=== PATIENT | male | born 1995 | race Caucasian/White ===

== ENCOUNTER 2019-01-12 19:43 | Emergency (ER) | payer OTHER ==
[2019-01-12] MEDS ORDERED: Ondansetron 4 MG Tab.DIS PO ONE (20:09)
--- NOTE | 2019-01-12 20:13 | EDM.PDOC ---
ED HPI GENERAL MEDICAL PROBLEM - General Chief Complaint: Head Injury Stated Complaint: FRONT OF HEAD HIT WITH A LOG Time Seen by Provider: 01/12/19 20:00 Source of Information: Reports: Patient History Limitations: Reports: No Limitations - History of Present Illness INITIAL COMMENTS - FREE TEXT/NARRATIVE: 23-year-old male presents to the ED with a work-related injury. At approximately 1945 hrs. tonight he was struck on the right side of his head by a large 12 inch diameter tree branch. 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 He was on ground-level when he was struck from the side without any awareness of it coming. Knocked his hard hat off and it flew about 10 feet away. The forced propelled him to the ground. States he was dazed but he did not lose consciousness. Appreciated blurred vision and within 10-15 minutes started having dry heaves and retching for about a half an hour. Still feels his vision is not quite right. Gradually increasing headache right temporal scalp. Could walk okay. No other injuries to any bad other body parts occurred. No open wounds evident. Onset: Today Onset Date: 01/12/19 Onset Time: 17:45 Duration: Minutes: Location: Reports: Head (Right temporal scalp contusion with closed head injury. ) Quality: Reports: Ache, Throbbing Severity: Moderate Improves with: Reports: Rest Worsens with: Reports: Other (Dry heaving nausea), Movement Context: Reports: Trauma (Closed head injury when he was struck by a large 12 inch diameter tree branch that was being cut down. Struck him in the right side of the temporal scalp. Knocked to the ground and knocked his hard hat off.). Denies: Activity, Exercise, Lifting, Sick Contact Associated Symptoms: Reports: Confusion, Headaches, Loss of Appetite, Nausea/ Vomiting. Denies: Chest Pain, Cough, cough w sputum, Fever/Chills (Right he took for about a half an hour after injury.), Shortness of Breath, Syncope, Weakness Treatments [employer]: Reports: Other (see below) (None.) Right Parietal Pain Score (Numeric/FACES): 6 - Related Data Allergies Allergy/AdvReac Type Severity Reaction Status Date / Time No Known Allergies Allergy Verified 01/12/19 19:50 Home Meds: Home Meds . [No Known Home Meds] 01/12/19 [History] Past Medical History - Past Health History Medical/Surgical History: Denies Medical/Surgical History Social & Family History - Tobacco Use Smoking Status *Q: Never Smoker - Recreational Drug Use Recreational Drug Use: No - Living Situation & Occupation Occupation: Employed ED ROS GENERAL - Review of Systems Review Of Systems: See Below Constitutional: Reports: No Symptoms HEENT: Reports: No Symptoms Respiratory: Reports: No Symptoms Cardiovascular: Reports: No Symptoms Endocrine: Reports: No Symptoms GI/Abdominal: Reports: No Symptoms : Reports: No Symptoms Musculoskeletal: Reports: No Symptoms Skin: Reports: No Symptoms Neurological: Reports: No Symptoms Psychiatric: Reports: No Symptoms Hematologic/Lymphatic: Reports: No Symptoms Immunologic: Reports: No Symptoms ED EXAM, HEAD INJURY - Physical Exam Exam: See Below Exam Limited By: No Limitations General Appearance: Alert, WD/WN, No Apparent Distress, Other (Eye contact and is alert and oriented.) Head: Other (Mild scalp hematoma right temporal frontal scalp laterally. Ear is uninjured. Feels some tightness in his right temporomandibular joint but has full range of motion) Nexus Criteria: No: Posterior, Midline Cervical Tenderness ( of the), Evidence of Intoxication, Altered Level of Consciousness, Focal Neurological Deficit, Painful Distraction Injuries Eyes: Bilateral Eye: Normal Inspection, PERRL Ears: Normal TMs Nose: Normal Inspection Throat/Mouth: Normal Inspection, Normal Lips, Normal Teeth, Normal Oropharynx Neck: Stiff Neck, Tenderness (Mildly stiff neck.), Tender Lateral ( Numbness left lateral neck.), Other Respiratory: No Respiratory Distress (Has full unopposed range of motion of cervical spine.), Lungs Clear, Normal Breath Sounds, No Accessory Muscle Use Cardiovascular: Normal Peripheral Pulses, Regular Rate, Rhythm, No Edema, No Gallop, No Murmur, No Rub Extremities: Normal Inspection, Normal Range of Motion, Non-Tender Neurologic: No Motor/Sensory Deficits, Alert, Normal Mood/Affect, Oriented x 3 Skin: Normal Color, Warm/Dry - Elliott Coma Score Best Eye Response ([place]): (4) Open Spontaneously Best Verbal Response (Elliott): (5) Oriented Best Motor Response (Elliott): (6) Obeys Commands Elliott Total: 15 Course - Vital Signs Last Recorded V/S: Last Vital Signs Temp 36.6 C 01/12/19 19:48 Pulse 63 01/12/19 19:48 Resp 16 01/12/19 19:48 BP 136/58 L 01/12/19 19:48 Pulse Ox 96 01/12/19 19:48 - Orders/Labs/Meds Meds: Medications Discontinued Medications Generic Name Dose Route Start Last Admin Trade Name Senait PRN Reason Stop Dose Admin Ondansetron HCl 4 mg 01/12/19 20:09 01/12/19 20:16 Zofran Odt PO 01/12/19 20:10 4 mg ONETIME ONE Administration - Radiology Interpretation Free Text/Narrative:: 9-year-old male presents the ED with a work-related injury. He reports that about 1745 hrs. today while at work he was struck in the right lateral frontal temporal scalp by a large 12 inch diameter tree branch that they were cutting down. 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 States that it hit him so hard that it propelled him to the ground and knocked his hard hat off a good 10 feet. States he was dazed for a period of time but did not lose conscious. About 15 minutes later he started having dry heaves which persisted for about a half an hour. He appreciates that his vision seems to be off a bit. I blurred. He does not wear glasses or contact lenses. Has some mild left-sided neck pain. Denies any other injuries to his body parts. Patient has a gradually worsening headache since time of injury. He states he has not off balance with walking. Examination reveals mild soft tissue swelling over the temporal frontal lateral scalp on the right side. Ears okay. Mild tenderness of the right temporomandibular joint likely due to contusion of the temporalis muscle. Mild tenderness left lateral neck with full range of motion. Plan CT head to be done. - Re-Assessments/Exams Free Text/Narrative Re-Assessment/Exam: 01/12/19 20:48 CT head is within normal limits showing no intracranial bleeding or mass effect. No skull fractures identified. Therefore appears that he has suffered a mild concussion. He feels he will be able to carry on at work doing alternative work duties without a lot of heavy lifting pushing or pulling for the next 3 or 4 days. May use Motrin 6 mg every 6 hours necessary for headache relief. Patient reports nausea is improved after Zofran sublingual. Devised a very light meal tonight for supper tonight. Departure - Departure Time of Disposition: :52 Disposition: Home, Self-Care 01 Condition: Fair Clinical Impression: Concussion with no loss of consciousness Closed head injury with concussion Qualifiers: Encounter type: initial encounter Loss of consciousness presence/duration: without LOC Qualified Code(s): S06.0X0A - Concussion without loss of consciousness, initial encounter - Discharge Information *PRESCRIPTION DRUG MONITORING PROGRAM REVIEWED*: Not Applicable *COPY OF PRESCRIPTION DRUG MONITORING REPORT IN PATIENT ZINA: Not Applicable Instructions: Head Injury, Adult, [id number] Referrals: PCP,None [Primary Care Provider] - Forms: ED Department Discharge, ED Return to Work/School Form Additional Instructions: Evaluation the emergency room today in regards to injuries to the right side of your head that occurred in the workplace this evening. Suggest 6 significant blunt trauma to the right temporal frontal scalp has occurred with contusion to the temporalis muscle along the side of your right hand. You were dazed but did not lose consciousness. Associated recurrent nausea with retching for a period of time. Blurred vision as well. CT of the head is normal however with no skull fractures intracranial bleeding or mass effect. He suggest however that you have suffered a concussion which is like her brain being" punched." The brain would have a bruise but we can't see that. Suggest very light activities with no heavy exertion for the next 3-4 days. May return to work if alternative work duties are available where you don't have to do a lot of heavy lifting pushing or pulling. Continue Motrin 6 mg every 6 hours as needed for headache relief. Expect the left side of her neck to become much more stiff and sore over the next 24-48 hours. Ice pack to the area for one half hour out of every 4 hours may be used for 2 days if necessary. Should help with discomfort in this area as well. Symptoms of blurred vision, feeling of off balance and headache usually would get better over the next 3-7 days. If not completely back to normal in 10 days you need to be seen again.
--- NOTE | 2019-01-12 20:54 | CT ---
Head CT Technique: Multiple axial sections through the brain were obtained. Intravenous contrast was not utilized. Comparison: No previous study. Findings: Ventricles along with basal cisterns and sulci over the convexities are within normal limits for the patient's age. No abnormal parenchymal densities are seen. No evidence of intracranial hemorrhage. No midline shift or mass effect is seen. Bone window settings were reviewed which shows no acute calvarial abnormality. Visualized sinuses are clear. Impression: 1. Nothing acute is appreciated on noncontrast head CT exam. Diagnostic code #1
== END 2019-01-12 21:05 | disposition home or self-care (01) ==
LOC: JD.ED 19:43
DX: S06.0X0A Concussion without loss of consciousness, initial encounter (principal); Y99.0 Civilian activity done for income or pay; W22.8XXA Striking against or struck by other objects, initial encounter
CPT/HCPCS: 70450; 99284; A9270

== ENCOUNTER 2024-08-06 20:39 | Emergency (ER) | payer OTHER ==
[2024-08-06] MEDS: Iopamidol 612 MG/ML 100 ML Bottle IVPUSH ONE (21:31)
[2024-08-06] MEDS: Ketorolac 15 MG/ML SDV IVPUSH ONE (21:37)
[2024-08-06] MEDS: Sodium Chloride 0.9% 1,000 ML IV ONE (21:37)
[2024-08-06] MEDS: Sodium Chloride 0.9% 10 ML Syringe FLUSH PRN (21:40)
[2024-08-06 22:03] LABS: BASOPHILS PERCENT AUTO 0.2 % (0.0-1.0); EOSINOPHILS PERCENT AUTO 0.1 % (0.0-6.0); HEMATOCRIT 39.8 % (42.0-52.0); IMMATURE GRAN ABSOLUTE AUTO 0.03 K/mm3 (0.00-0.05); IMMATURE GRAN PERCENT AUTO 0.3 % (0.0-0.4); LYMPHOCYTES ABSOLUTE AUTO 0.6 K/mm3 (1.0-4.8); LYMPHOCYTES PERCENT AUTO 6.2 % (24.0-44.0); MEAN CORPUSCULAR HEMOGLOBIN 29.7 pg (28.0-32.0); MEAN CORPUSCULAR HGB CONC 35.2 g/dl (32.0-36.0); MEAN CORPUSCULAR VOLUME 84.5 fl (83.0-99.0); MEAN PLATELET VOLUME 9.4 fl (9.4-12.4); MONOCYTES ABSOLUTE AUTO 0.6 K/mm3 (0.0-0.8); MONOCYTES PERCENT AUTO 6.4 % (0.0-8.0); NEUTROPHILS ABSOLUTE AUTO 8.7 K/mm3 (1.8-7.7); NEUTROPHILS PERCENT AUTO 86.8 % (41.0-71.0); PLATELET COUNT,PLT 192 K/mm3 (150-400); RED BLOOD CELL COUNT 4.71 M/mm3 (4.52-5.90); WHITE BLOOD CELL COUNT,WBC 9.98 K/mm3 (3.9-11.3)
[2024-08-06 22:26] LABS: A/G RATIO 1.5 (1-2); ALBUMIN 3.8 g/dl (3.4-5.0); ANION GAP 12.7 (5-15); BILIRUBIN TOTAL 2.3 mg/dL (0.2-1.0); BUN/CREATININE RATIO 10.8 (14-18); CALCIUM 8.6 mg/dL (8.5-10.1); CREATININE 1.3 mg/dL (0.7-1.3); EST CRCL DRUG DOSING (CG) 79.09 mL/min; POTASSIUM,K 3.7 mEq/L (3.5-5.1); PROTEIN TOTAL,TP 6.4 g/dl (6.4-8.2)
[2024-08-06 22:32] LABS: APPEARANCE,URINE CLEAR (Clear); BILIRUBIN,URINE NEGATIVE (Negative); COLOR,URINE YELLOW (Yellow); GLUCOSE,URINE NEGATIVE (Negative); KETONES,URINE NEGATIVE (Negative); LEUKOCYTE ESTERASE,URINE NEGATIVE (Negative); NITRITE,URINE NEGATIVE (Negative); OCCULT BLOOD,URINE NEGATIVE (Negative); PH,URINE 8.5 (5.0-8.0); PROTEIN,URINE TRACE (Negative); UROBILINOGEN,URINE 0.2 (0.2-1.0)
[2024-08-06 22:40] LABS: BACTERIA,URINE OCCASIONAL /hpf (FEW); MUCUS,URINE FEW /hpf (FEW); RBC,URINE 0-5 /hpf (0-5); SQUAMOUS EPITHELIAL CELLS,UR 0-5 /hpf (0-5); WBC,URINE 0-5 /hpf (0-5)
== END 2024-08-06 23:37 | disposition home or self-care (01) ==
LOC: JD.ED 20:39
DX: R10.32 Left lower quadrant pain (principal); R10.12 Left upper quadrant pain; R10.13 Epigastric pain; R10.11 Right upper quadrant pain; F17.210 Nicotine dependence, cigarettes, uncomplicated; Z86.16 Personal history of COVID-19
CPT/HCPCS: 36415; 74177; 80053; 81001; 83690; 85025; 96361; 96374; 99284; J1885; J3490; J7030; Q9967; 99283